=== PATIENT | female | born 1980 | race Caucasian/White ===

== ENCOUNTER 2020-06-20 13:13 | Emergency (ER) | payer MEDICAID ==
--- NOTE | 2020-06-20 13:28 | EDM.PDOC ---
ED HPI GENERAL MEDICAL PROBLEM - General Chief Complaint: Gastrointestinal Problem Stated Complaint: nausea/vomiting Time Seen by Provider: 06/20/20 13:25 Source of Information: Reports: Patient, Old Records ([facility] EMR. No paper hospital chart available.) History Limitations: Reports: No Limitations - History of Present Illness INITIAL COMMENTS - FREE TEXT/NARRATIVE: The patient was brought to the emergency room via private automobile by her for evaluation of sharp constant 5/10 right upper quadrant abdominal pain associated with 5 episodes of emesis and 2 loose stools with symptoms starting at about 2:30 AM this morning. She has also felt somewhat chilled, however not measured her temperature with no medications taken to this point secondary to recurrent emesis as above. No recent history of other abdominal pain, heartburn, hematemesis, melena, gross hematochezia, or any food intolerance, including fatty foods, etc.. She denies any gross hematuria, colic, or other UTI symptoms. The patient also denies any recent cough, wheezing, dyspnea, etc. with stable allergic rhinitis to this point. The patient denies any chest pain/pressure, heart flutter, orthostasis, orthopnea, diaphoresis, paresthesias, recent decreased exercise tolerance, or any other anginal-type symptoms, although she has felt somewhat dizzy secondary to the abo ve symptoms. The patient was evaluated by her regular provider, Hodan Simon PA-C, at [facility] in [place], yesterday and started on medications for bacterial vaginitis and exacerbation of her chronic vaginal moniliasis with the patient tolerating these medications in the past. She denies any recent exposure to infection or food poisoning. She was also started on an upper tapering regimen, Contrave yesterday by her regular provider. The patient did receive her J&J Covid immunization in May and also did receive an influenza booster this past season. Onset: Today, Gradual Onset Date: 06/20/20 Onset Time: 02:30 Duration: Constant, Getting Worse Location: Reports: Abdomen. Denies: Head, Chest, Back, Pelvis, Upper Extremity, Left, Upper Extremity, Right, Lower Extremity, Left, Lower Extremity, Right, Radiates to Quality: Reports: Same as Previous Episode, Sharp Severity: Moderate Improves with: Reports: None Worsens with: Reports: None Context: Reports: Other (As above). Denies: Sick Contact, Trauma Associated Symptoms: Reports: Fever/Chills, Nausea/Vomiting. 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) (None) Right Upper Abdomen Pain Score (Numeric/FACES): 5 - Related Data Allergies Allergy/AdvReac Type Severity Reaction Status Date / Time codeine Allergy Nausea Verified 06/20/20 13:45 Home Meds: Home Meds FLUoxetine HCl [Prozac] 40 mg PO DAILY 06/20/20 [History] Fluconazole [Diflucan] 100 mg PO [id number] 06/20/20 [History] Folic Acid 1 mg PO DAILY 06/20/20 [History] Methotrexate 6 tab PO WEEKLY 06/20/20 [History] Pregabalin [Lyrica] 200 mg PO BID 06/20/20 [History] metroNIDAZOLE [Metrogel-Vaginal] 1 applic VAG BEDTIME 06/20/20 [History] Past Medical History HEENT History: Reports: Allergic Rhinitis, Impaired Vision, Sinusitis, Other (See Below). Denies: Cataract, Glaucoma, Hard of Hearing, Macular Degeneration, Retinal Detachment Other HEENT History: Patient wears glasses. Dry eyes secondary to Sjogren's syndrome. Cardiovascular History: Reports: Arrhythmia, Other (See Below). Denies: Afib, Aneurysm, Blood Clots/VTE/DVT, CAD, Heart Failure, Heart Murmur, High Cholesterol, Hypertension, [place], PVD, Syncope Other Cardiovascular History: PACs, PVCs, and some arrhythmia usually during pregnancies, however also with caffeine, stimulant exposure. Respiratory History: Reports: Intubation, Previous. Denies: Asthma, Bronchitis, Recurrent, COPD, Intubation, Difficult, PE, Pneumonia, Recurrent, Pneumothorax, Pulmonary Fibrosis, Sleep Apnea, TB Gastrointestinal History: Reports: Cholelithiasis, Chronic Constipation, GERD. Denies: Bowel Obstruction, Celiac Disease, Chronic Diarrhea, Diverticulosis, Fatty Liver, Fecal Incontinence, Gastritis, GI Bleed, Hepatitis, Hiatal Hernia, Inflammatory Bowel Disease, Irritable Bowel Syndrome, Jaundice, Pancreatitis, PUD Genitourinary History: Reports: Hydronephrosis, Renal Calculus, UTI, Recurrent, Other (See Below). Denies: Acute Renal Failure, Chronic Renal Insuffiency, Retention, Urinary, STD, Urinary Incontinence Other Genitourinary History: Chronic recurrent vaginal moniliasis. Right-sided urolithiasis which did require procedures as below. 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 D enies: Dysfunctional Uterine Bleeding, Endometriosis, Fibroids LMP (Approximate): Other (See Below) Other WET COTTON FEEDER History: Vaginal stillborn at 28 weeks gestation with subsequent C- sections x2 secondary to small pelvis. No other complications during pregnancies or deliveries. LMP normal 1 week ago. Musculoskeletal History: Reports: Arthritis, Back Pain, Chronic, Fracture, Neck Pain, Chronic, Osteoarthritis, Other (See Below). Denies: Gout (No gallop no rheumatoid arthritis shoulder pain), RA, SLE Other Musculoskeletal History: Chronic left shoulder pain, etc. Sjogren's syndrome. Left clavicular fracture at age 2. Distal left tibial fracture not requiring any surgery at age 20. Neurological History: Denies: Cerebral Aneurysms, Concussion, CVA, Headaches, Chronic, Head Trauma, Migraines, Neuropathy, Peripheral, Parkinson's, Seizure, TIA, Vertigo Other Neuro History: Trigeminal neuralgia. Psychiatric History: Reports: Anxiety, Depression. Denies: Abuse, Victim of, ADD, ADHD, Psych Hospitalization(s), PTSD, Suicide Attempt, Suicidal Ideation Endocrine/Metabolic History: Reports: Multinodular Thyroid, Obesity/BMI 30+, Other (See Below). Denies: Diabetes, Gestational, Diabetes, Type I, Diabetes, Type II, Diabetes Mellitus, Type 3c, Hypothyroidism, IDDM Other Endocrine/Metabolic History: Benign thyroid nodules with negative biopsies as below in 2017. Hematologic History: Reports: Anemia. Denies: Blood Transfusion(s), Iron Deficiency Immunologic History: Reports: None. Denies: AIDS, HIV, SLE Oncologic (Cancer) History: Reports: None. Denies: Basal Cell Carcinoma, Cervix, Hodgkin's Lymphoma, Leukemia, Lymphoma, Malignant Melanoma, Non- Hodgkin's Lymphoma, Ovarian, Squamous Cell Carcinoma, Uterine Dermatologic History: Reports: Other (See Below). Denies: Eczema, Psoriasis Other Dermatologic History: Multiple benign nevi. - Infectious Disease History Infectious Disease History: Reports: Other (See Below). Denies: C-Difficile, Chicken Pox, Measles, Meningitis, Mononucleosis, MRSA, Mumps, Novel Coronavirus (J&J immunization in May 2020), Pertussis (Whooping Cough), Rheumatic Fever, Rubella, Scarlet Fever, Shingles, TB, VRE Other Infectious Disease History: Fifth's disease. - Past Surgical History Head Surgeries/Procedures: Reports: None HEENT Surgical History: Reports: Adenoidectomy, Oral Surgery, Tonsillectomy, Other (See Below) (No nose or sinus surgery laser treatments of your eye and). Denies: Cataract Surgery, Eye Surgery, Laser Surgery, LASIK, Myringotomy w Tube(s), Naso-Sinus Surgery Other HEENT Surgeries/Procedures: [place] teeth extraction x4 at about age 15 with additional teeth extractions. Tonsillectomy and adenoidectomy at age 15. Cardiovascular Surgical History: Reports: None. Denies: Varicose Respiratory Surgical History: Reports: None (Varicose veins or other). Denies: Thoracentesis GI Surgical History: Reports: Cholecystectomy, Other (See Below). Denies: Appendectomy, Colon, Colonoscopy, EGD, Hernia, Abdominal, Hernia, Inguinal, Hernia Repair/Other Other GI Surgeries/Procedures: Laparoscopic cholecystectomy in 2004. Female Surgical History: Reports: Section, Kidney stone extraction, Ureteral Stent, Other (See Below). Denies: D&C, Dilitation & Evacuation, Hysterectomy, Oophorectomy, Salpingo-Oophorectomy, Tubal Ligation Other Female Surgeries/Procedures: x2 as above. Patient denies previous lithotripsy with actual intrauteral urinary stone laser treatment with subsequent stent placement and extraction in June 2013. Endocrine Surgical History: Reports: Thyroid Biopsy, Other (See Below) Other Endocrine Surgeries/Procedures: Negative thyroid biopsies x2 in 2016. Neurological Surgical History: Reports: None. Denies: C-Spine, Discectomy, Laminectomy, Lumbar Spine, Sacral Spine, Spinal Fusion, Thoracic Spine, Vertebroplasty Musculoskeletal Surgical History: Reports: None. Denies: Amputation, Carpal Tunnel, Ganglion Cyst, Joint Replacement, Shoulder Surgery Oncologic Surgical History: Reports: None Dermatological Surgical History: Reports: Skin Biopsy, Other (See Below) Other Dermatological Surgeries/Procedures: Excision of multiple benign nevi. Drainage of left breast abscess in October 2018. - Past Imaging History Past Imaging History: Reports: CAT Scan (CT scan of the abdomen and pelvis using stone protocol on 06/10/2013.), Ultrasound (Soft tissue ultrasound of the neck region on 02/08/2019. Left breast ultrasound on 10/18/2018. Pelvic ultrasound 08/25/2018. OB ultrasounds.) Social & Family History - Family History HEENT: Reports: Macular Degeneration, Other (See Below). Denies: Glaucoma, Retinal Detachment Other HEENT Family History: Maternal grandmother with macular degeneration. Cardiac: Reports: High Cholesterol, Other (See Below). Denies: Afib, Aneurysm, Arrhythmia, Blood Clots/VTE/DVT, CAD, Heart Failure, Heart Murmur, Hypertension, [place], Syncope Other Cardiac Family History: Father with hyperlipidemia. Respiratory: Reports: None. Denies: Asthma, COPD, PE, Pneumothorax, Sleep Apnea GI: Reports: Cholelithiasis, Other (See Below). Denies: Celiac Disease, Colon Polyps, GERD, GI bleed, Inflammatory Bowel Disease, Irritable Bowel Syndrome, PUD Other GI Family History: Cholelithiasis and sisters x2. : Reports: None. Denies: Renal Calculus, Renal Disease/Insufficiency OBGYN: Reports: Endometriosis, Other (See Below). Denies: Dysfunctional uterine bleeding, Fibroids, Recurrent Spontaneous Other OBGYN Family History: Sister with endometriosis. Musculoskeletal: Denies: Gout, Osteoarthritis, RA, SLE Neurological: Reports: CVA, Dementia, MS, Other (See Below). Denies: Alzheimers Disease, Cerebral Aneurysms, Parkinson's, Seizure, TIA Other Neurological Family History: Maternal grandfather with fatal CVA in his early 70s. Mother with unknown type of recurrent headaches. Sister with MS. Paternal grandmother with organic brain syndrome. Psychiatric: Reports: None. Denies: Abuse, Victim of, ADD, ADHD, Anxiety, Depression, Psych Hospitalization(s), PTSD, Suicide Attempt Endocrine/Metabolic: Reports: None. Denies: Diabetes, Type I, Diabetes, type II, Diabetes Mellitus, Type 3c, Hypothyroidism, IDDM Hematologic: Reports: None. Denies: Anemia Immunologic: Reports: None. Denies: AIDS, HIV, SLE Dermatologic: Reports: Eczema, Other (See Below). Denies: Psoriasis Other Dermatologic Family History: Children x2 with eczema. Oncologic: Reports: Brain, Skin, Other (See Below). Denies: Breast, Cervix, Colon, Hodgkin's Lymphoma, Leukemia, Lung, Lymphoma, Non-Hodgkin's Lymphoma, Ovarian, Thyroid, Uterine Other Oncologic Family History: Paternal grandfather with fatal brain cancer in his mid 70s. Father with unknown type of skin cancer. - Tobacco Use Tobacco Use Status *Q: Never Tobacco User Tobacco Use Within Last Twelve Months: No Used Tobacco, but Quit: No Smoking Cessation Information Provided To Patient: No Second Hand Smoke Exposure: No Second Hand Smoke Education Provided: No - Caffeine Use Caffeine Use: Reports: Coffee (1-2 cups/day). Denies: Energy Drinks, Soda, Tea - Alcohol Use Alcohol Use History: Yes Days Per Week of Alcohol Use: 0 Number of Drinks Per Day: 2 Number of Drinks Per Day Comment: Usually wine about once per month. No previous DWIs, problems with alcohol abuse, etc.. Total Drinks Per Week: 0 - Recreational Drug Use Recreational Drug Use: No Drug Use in Last 12 Months: No Recreational Drug Type: Denies: Amphetamines (Speed), Cocaine, Heroin, LSD (Acid), Marijuana/Hashish, Methamphetamine, Morphine, Oxycodone - Living Situation & Occupation Living situation: Reports: (2011. 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 ED EXAM, GI/ABD - Physical Exam Exam: See Below Exam Limited By: No Limitations General Appearance: Alert, WD/WN, No Apparent Distress, Anxious (Mild) Eyes: Bilateral: Normal Appearance (Patient is wearing glasses. No vertigo or nystagmus), EOMI (PERRLA) Ears: Normal External Exam, Normal Canal, Hearing Grossly Normal, Normal TMs Nose: Normal Inspection, Normal Mucosa, No Blood Throat/Mouth: Normal Inspection, Normal Lips, Normal Teeth (Occasional missing teeth), Normal Gums, Normal Oropharynx, Normal Voice, No Airway Compromise. No: Dysphagia, Perioral Cyanosis Head: Atraumatic, Normocephalic. No: Facial Swelling, Facial Tenderness, Sinus Tenderness Neck: Normal Inspection, Supple, Non-Tender, Full Range of Motion. No: Carotid Bruit, Lymphadenopathy (L), Lymphadenopathy (R), Thyromegaly Respiratory/Chest: No Respiratory Distress, Lungs Clear, Normal Breath Sounds, No Accessory Muscle Use, Chest Non-Tender. No: Pleural Rub, Retractions Cardiovascular: Normal Peripheral Pulses, Regular Rate, Rhythm, No Edema, No Gallop, No JVD, No Murmur, No Rub. No: Gallop/S3, Gallop/S4, Friction Rub GI/Abdominal Exam: Normal Bowel Sounds, No Organomegaly, No Distention, No Abnormal Bruit, No Mass, Pelvis Stable, Tender (Mild right upper quadrant palpation pain). No: Guarding, Rigid, Rebound (Female) Exam: Deferred Rectal (Female) Exam: Deferred Back Exam: Normal Inspection, Full Range of Motion. No: CVA Tenderness (L), CVA Tenderness (R), Muscle Spasm Extremities: Normal Inspection, Normal Range of Motion, Non-Tender, No Pedal Edema, Normal Capillary Refill. No: Carri's Sign Neurological: Alert, Oriented, CN II-XII Intact, Normal Cognition, Normal Gait, Normal Reflexes (Negative Babinski's), No Motor/Sensory Deficits Psychiatric: Anxious (Mild), Depressed Mood (Borderline) Skin Exam: Warm, Dry, Intact, Normal Color, No Rash. No: Diaphoretic, Pallor, Wound/Incision Lymphatic: No Adenopathy Course - Vital Signs Last Recorded V/S: Last Vital Signs Temp 36.8 C 06/20/20 14:00 Pulse 78 06/20/20 14:00 Resp 16 06/20/20 14:00 BP 118/63 06/20/20 14:00 Pulse Ox 100 06/20/20 14:00 Vital Signs - 24 hr 06/20/20 06/20/20 06/20/20 13:15 13:43 14:00 Temperature [ 36.9 C 36.8 C Temporal] Pulse, 83 75 78 Peripheral [ Right Pulse Oximetry] Respiratory 18 18 16 Rate Blood Pressure 110/66 111/64 118/63 [Right Upper Arm] O2 Sat by Pulse 100 100 100 Oximetry - Orders/Labs/Meds Orders: Active Orders 24 hr Category Date Time Status Abdomen Series w Chest 1V [CR] Stat Exams 06/20/20 13:29 Taken CULTURE STREP A CONFIRMATION [RM] Stat Lab 06/20/20 13:37 Results CULTURE URINE [RM] Stat Lab 06/20/20 14:22 Ordered STREP SCRN A RAPID W CULT CONF [RM] Stat Lab 06/20/20 13:37 Results Isolation [COMM] Routine Oth 06/20/20 13:31 Active Obtain Past Medical Record [OM.PC] Urgent Oth 06/20/20 13:29 Active Peripheral IV Insertion Adult [OM.PC] Stat Oth 06/20/20 13:29 Ordered Resuscitation Status Stat Resus Stat 06/20/20 13:29 Ordered Labs: Laboratory Tests 06/20/20 06/20/20 06/20/20 Range/Units 13:37 13:45 13:45 WBC 8.8 (4.0-10.2) K/uL RBC 4.61 (3.77-5.09) M/uL Hgb 14.3 D (11.7-15.5) g/dL Hct 42.0 (34.0-46.0) % MCV 91.1 (84.0-98.0) fL MCH 31.0 (28.2-33.3) pg MCHC 34.0 (31.7-36.0) g/dL RDW 14.1 (11.2-14.1) % Plt Count 292 (150-350) K/uL Neut % (Auto) 86.4 H (45.0-80.0) % Lymph % (Auto) 8.7 L (10.0-50.0) % Custer % (Auto) 4.6 (2.0-14.0) % Eos % (Auto) 0.1 (0.0-5.0) % Baso % (Auto) 0.2 (0.0-2.0) % Neut # (Auto) 7.62 H (1.40-7.00) K/uL Lymph # (Auto) 0.77 (0.50-3.50) K/uL [place] # (Auto) 0.41 (0.00-1.00) K/uL Eos # (Auto) 0.01 (0.00-0.50) K/uL Baso # (Auto) 0.02 (0.00-0.20) K/uL PT (9.5-12.0) SEC INR APTT (24.5-32.8) SEC Sodium (136-145) mmol/L Potassium (3.5-5.1) mmol/L Chloride (98-107) mmol/L Carbon Dioxide (21.0-32.0) mmol/L BUN (7-18) mg/dL Creatinine (0.51-1.17) mg/dL Est Cr Clr Drug Dosing mL/min Estimated GFR (MDRD) mL/min Glucose (70-99) mg/dL Lactic Acid (0.4-2.0) mmol/L Uric Acid (2.6-7.2) mg/dL Calcium (8.5-10.1) mg/dL Magnesium (1.8-2.4) mg/dL Total Bilirubin (0.2-1.0) mg/dL AST (15-37) U/L ALT (12-78) U/L Alkaline Phosphatase (46-116) IU/L Total Protein (6.4-8.2) g/dL Albumin (3.4-5.0) g/dL Amylase 40 (25-115) U/L Lipase (73-393) U/L HCG, Qual (NEGATIVE) Specimen Type Urine Color Urine Appearance Urine pH (5.0-9.0) Ur Specific Dyer (1.005-1.030) Urine Protein (NEGATIVE) mg/dL Urine Glucose (UA) (NEGATIVE) mg/dL Urine Ketones (NEGATIVE) mg/dL Urine Occult Blood (NEGATIVE) Urine Nitrite (NEGATIVE) Urine Bilirubin (NEGATIVE) Urine Urobilinogen (0.2-1.0) E.U./dL Ur Leukocyte Esterase (NEGATIVE) Urine RBC /HPF Urine WBC /HPF Ur Epithelial Cells /LPF Urine Bacteria (NONE TO FEW) /HPF SARS-CoV-2 RNA (NNEKA) Negative (NEGATIVE) 06/20/20 06/20/20 06/20/20 Range/Units 13:45 13:45 13:45 WBC (4.0-10.2) K/uL RBC (3.77-5.09) M/uL Hgb (11.7-15.5) g/dL Hct (34.0-46.0) % MCV (84.0-98.0) fL MCH (28.2-33.3) pg MCHC (31.7-36.0) g/dL RDW (11.2-14.1) % Plt Count (150-350) K/uL Neut % (Auto) (45.0-80.0) % Lymph % (Auto) (10.0-50.0) % C[place] % (Auto) (2.0-14.0) % Eos % (Auto) (0.0-5.0) % Baso % (Auto) (0.0-2.0) % Neut # (Auto) (1.40-7.00) K/uL Lymph # (Auto) (0.50-3.50) K/uL C[place] # (Auto) (0.00-1.00) K/uL Eos # (Auto) (0.00-0.50) K/uL Baso # (Auto) (0.00-0.20) K/uL PT 9.9 (9.5-12.0) SEC INR 1.0 APTT 25.2 (24.5-32.8) SEC Sodium 137 (136-145) mmol/L Potassium 3.8 (3.5-5.1) mmol/L Chloride 101 (98-107) mmol/L Carbon Dioxide 25.7 (21.0-32.0) mmol/L BUN 18 (7-18) mg/dL Creatinine 0.56 (0.51-1.17) mg/dL Est Cr Clr Drug Dosing 150.75 mL/min Estimated GFR (MDRD) > 60 mL/min Glucose 117 H (70-99) mg/dL Lactic Acid 0.9 (0.4-2.0) mmol/L Uric Acid 3.0 (2.6-7.2) mg/dL Calcium 8.7 (8.5-10.1) mg/dL Magnesium 2.0 (1.8-2.4) mg/dL Total Bilirubin 0.4 (0.2-1.0) mg/dL AST 76 H (15-37) U/L ALT 108 H (12-78) U/L Alkaline Phosphatase 118 H (46-116) IU/L Total Protein 7.6 (6.4-8.2) g/dL Albumin 3.8 (3.4-5.0) g/dL Amylase (25-115) U/L Lipase 87 (73-393) U/L HCG, Qual (NEGATIVE) Specimen Type Urine Color Urine Appearance Urine pH (5.0-9.0) Ur Specific Dyer (1.005-1.030) Urine Protein (NEGATIVE) mg/dL Urine Glucose (UA) (NEGATIVE) mg/dL Urine Ketones (NEGATIVE) mg/dL Urine Occult Blood (NEGATIVE) Urine Nitrite (NEGATIVE) Urine Bilirubin (NEGATIVE) Urine Urobilinogen (0.2-1.0) E.U./dL Ur Leukocyte Esterase (NEGATIVE) Urine RBC /HPF Urine WBC /HPF Ur Epithelial Cells /LPF Urine Bacteria (NONE TO FEW) /HPF SARS-CoV-2 RNA (NNEKA) (NEGATIVE) 06/20/20 06/20/20 Range/Units 13:45 14:01 WBC (4.0-10.2) K/uL RBC (3.77-5.09) M/uL Hgb (11.7-15.5) g/dL Hct (34.0-46.0) % MCV (84.0-98.0) fL MCH (28.2-33.3) pg MCHC (31.7-36.0) g/dL RDW (11.2-14.1) % Plt Count (150-350) K/uL Neut % (Auto) (45.0-80.0) % Lymph % (Auto) (10.0-50.0) % [place] % (Auto) (2.0-14.0) % Eos % (Auto) (0.0-5.0) % Baso % (Auto) (0.0-2.0) % Neut # (Auto) (1.40-7.00) K/uL Lymph # (Auto) (0.50-3.50) K/uL [place] # (Auto) (0.00-1.00) K/uL Eos # (Auto) (0.00-0.50) K/uL Baso # (Auto) (0.00-0.20) K/uL PT (9.5-12.0) SEC INR APTT (24.5-32.8) SEC Sodium (136-145) mmol/L Potassium (3.5-5.1) mmol/L Chloride (98-107) mmol/L Carbon Dioxide (21.0-32.0) mmol/L BUN (7-18) mg/dL Creatinine (0.51-1.17) mg/dL Est Cr Clr Drug Dosing mL/min Estimated GFR (MDRD) mL/min Glucose (70-99) mg/dL Lactic Acid (0.4-2.0) mmol/L Uric Acid (2.6-7.2) mg/dL Calcium (8.5-10.1) mg/dL Magnesium (1.8-2.4) mg/dL Total Bilirubin (0.2-1.0) mg/dL AST (15-37) U/L ALT (12-78) U/L Alkaline Phosphatase (46-116) IU/L Total Protein (6.4-8.2) g/dL Albumin (3.4-5.0) g/dL Amylase (25-115) U/L Lipase (73-393) U/L HCG, Qual Negative (NEGATIVE) Specimen Type Urinvoid Urine Color Yellow Urine Appearance Clear Urine pH 7.0 (5.0-9.0) Ur Specific Dyer 1.015 (1.005-1.030) Urine Protein Negative (NEGATIVE) mg/dL Urine Glucose (UA) Negative (NEGATIVE) mg/dL Urine Ketones 15 H (NEGATIVE) mg/dL Urine Occult Blood Negative (NEGATIVE) Urine Nitrite Negative (NEGATIVE) Urine Bilirubin Negative (NEGATIVE) Urine Urobilinogen 0.2 (0.2-1.0) E.U./dL Ur Leukocyte Esterase Negative (NEGATIVE) Urine RBC Not seen /HPF Urine WBC 0-5 /HPF Ur Epithelial Cells Few /LPF Urine Bacteria Few (NONE TO FEW) /HPF SARS-CoV-2 RNA (NNEKA) (NEGATIVE) Urine specimen sent for culture and sensitivity Microbiology 06/20/20 13:37 Group A Streptococcus Rapid Screen - Final Throat NEGATIVE STREP A SCREEN REFERENCE RANGE: NEGATIVE 06/20/20 13:37 Influenza Type A Antigen Screen - Final Nasal, Unspecified NEGATIVE INFLUENZA A VIRUS AG REFERENCE RANGE: NEGATIVE Influenza Type B Antigen Screen - Final NEGATIVE INFLUENZA B VIRUS AG REFERENCE RANGE: NEGATIVE Meds: Medications Discontinued Medications Generic Name Dose Route Start Last Admin Trade Name Freq PRN Reason Stop Dose Admin Al Hydroxide/Mg Hydroxide 30 ml 06/20/20 14:48 06/20/20 14:53 Gi Cocktail Oral Solution 30 Ml PO 06/20/20 14:49 30 ml ONETIME ONE Administration Famotidine 40 mg 06/20/20 13:29 06/20/20 13:44 Famotidine 20 Mg/2 Ml Sdv IVPUSH 06/20/20 13:30 40 mg ONETIME ONE Administration Lactated Ringer's 1,000 mls @ 999 mls/hr 06/20/20 13:29 06/20/20 13:50 Ringers, Lactated IV 06/20/20 14:29 999 mls/hr .BOLUS ONE Administration Ondansetron HCl 4 mg 06/20/20 13:29 06/20/20 13:44 Ondansetron 4 Mg/2 Ml Sdv IVPUSH 06/20/20 13:30 4 mg ONETIME ONE Administration Pantoprazole Sodium 40 mg 06/20/20 13:29 06/20/20 13:44 Pantoprazole 40 Mg Vial IVPUSH 06/20/20 13:30 40 mg ONETIME ONE Administration Sodium Chloride 10 ml 06/20/20 13:29 Sodium Chloride 0.9% 10 Ml Syringe FLUSH ASDIRECTED PRN Keep Vein Open - Radiology Interpretation Free Text/Narrative:: Acute abdominal x-ray shows a mildly poor inspiratory film with no cardiomegaly, CHF, pulmonary infiltrates, pneumothorax, free air, ileus, obstruction, fluid levels, etc. Surgical clips noted in the right upper quadrant consistent with previous laparoscopic cholecystectomy with additional surgical clips noted in the right lower quadrant consistent with possible concomitant appendectomy? Departure - Departure Time of Disposition: 15:05 Disposition: Home, Self-Care 01 Condition: Good Clinical Impression: Peptic reflux disease, Mixed anxiety depressive disorder, Obesity (BMI 35.0- 39.9 without comorbidity), Vaginal moniliasis, Elevated LFTs Nausea and vomiting Qualifiers: Vomiting type: unspecified Vomiting Intractability: non-intractable Qualified Code(s): R11.2 - Nausea with vomiting, unspecified - Discharge Information *PRESCRIPTION DRUG MONITORING PROGRAM REVIEWED*: Not Applicable *COPY OF PRESCRIPTION DRUG MONITORING REPORT IN PATIENT REMA: Not Applicable Instructions: Heart-Healthy Eating Plan, [id number], Nausea and Vomiting, Adult, [id number] Referrals: Hodan Sorenson PA-C [Physician Breakfast Attendant] - Forms: ED Department Discharge, ED Return to Work/School Form Additional Instructions: 1. Followup with your regular provider in 7 days as directed with recommended repeat CBC, comprehensive metabolic panel, and additional glycosylated hemoglobin and/or 12-hour fasting lipid panel, if your diabetes and/your cholesterol profile has not been recently conducted within the last 3 months. Bring these discharge instructions with you to that visit 2. Consider abdominal ultrasound depending on your symptoms at follow-up secondary to your mild liver function test elevations today. 3. [place] diet including encouragement of oral fluids such as sports drinks, etc. for 24-48 hours as directed. Advance to heart healthy diet as tolerated thereafter. 4. You may use [id number] antacids, Pepcid, and/or Prilosec as needed per label instructions depending on your symptoms with this to be discussed with your regular provider at the above follow-up visit 5. Work excuse- See Form 6. Immediately after this visit verify that your cellular telephone's voicemail has been activated and is empty. Also verify that your home telephone's answering machine is operating properly and has space to receive messages. Note that it is sometimes necessary for us to be able to contact you at a later date to discuss your medical care. 7. Please remember that we are ALWAYS here for you and want to answer any questions you may have. Feel free to call the hospital any time and we call you back MARY. 8. You have been declared intolerant to Contrave and should discontinue this medication at this time. Discuss this with your regular provider at the above follow-up visit. 9. Have your regular provider review the paper hospital chart at [facility] to determine whether a concomitant incidental appendectomy was actually performed at time of your laparoscopic cholecystectomy. Sepsis Event Note (ED) - Focused Exam Vital Signs: Vital Signs Temp Pulse Resp BP Pulse Ox 06/20/20 14:00 36.8 C 78 16 118/63 100 06/20/20 13:43 75 18 111/64 100 06/20/20 13:15 36.9 C 83 18 110/66 100 - Problem List & Annotations (1) Nausea and vomiting SNOMED Code(s): 21241463 Code(s): R11.2 - NAUSEA WITH VOMITING, UNSPECIFIED Status: Acute Pr iority: High Onset Date: 06/20/20 Annotation/Comment:: Likely secondary to her Contrave, which the patient started yesterday as above with 1 dose to this point. She will be declared intolerant to this medication and will discuss this further with her regular provider. Symptoms resolved at time of discharge with bland diet initially. Work excuse was provided. Qualifiers: Vomiting type: unspecified Vomiting Intractability: non-intractable Qualified Code(s): R11.2 - Nausea with vomiting, unspecified (2) Peptic reflux disease SNOMED Code(s): 736267258 Code(s): K21.9 - GASTRO-ESOPHAGEAL REFLUX DISEASE WITHOUT ESOPHAGITIS Status: Chronic Priority: Medium Annotation/Comment:: No previous medical therapy. Overall good results with high-dose IV Pepcid and IV Protonix in the emergency room. 1 L of lactated Ringer's was also given in the emergency room. [place] diet for now with subsequent as needed medications as per discharge instructions. (3) Elevated LFTs SNOMED Code(s): 419233481 Code(s): R79.89 - OTHER SPECIFIED ABNORMAL FINDINGS OF BLOOD CHEMISTRY Status: Acute Priority: High Onset Date: 06/20/20 Annotation/Comment:: Possibly secondary to fatty liver. Observe closely by her regular provider with consideration of lipid panel, abdominal ultrasound, etc. depending on her clinical course as per discharge instructions. Note status post laparoscopic cholecystectomy with patient denying concomitant appendectomy. She will discuss this further with her regular provider at follow-up. Note that this procedure was performed at [facility] with [facility] chart to be reviewed by her regular provider. (4) Mixed anxiety depressive disorder SNOMED Code(s): 235097383 Code(s): F41.8 - OTHER SPECIFIED ANXIETY DISORDERS Status: Chronic Priority: Medium Annotation/Comment:: Moderate control based on today's exam. Continue to observe closely by her regular provider. (5) Obesity (BMI 35.0-39.9 without comorbidity) SNOMED Code(s): 511829424, 620081124 Code(s): E66.9 - OBESITY, UNSPECIFIED Status: Chronic Priority: Medium Annotation/Comment:: Dietary information provided. Continue close follow-up by regular provider. (6) Vaginal moniliasis SNOMED Code(s): 69299613 Code(s): B37.3 - CANDIDIASIS OF VULVA AND VAGINA Status: Acute Priority: Medium Onset Date: ~06/19/20 Annotation/Comment:: Chronic problem with repeat medical therapy started yesterday. - Problem List Review Problem List Initiated/Reviewed/Updated: Yes - My Orders Last 24 Hours: My Active Orders 06/20/20 13:29 Abdomen Series w Chest 1V [CR] Stat Obtain Past Medical Record [OM.PC] Urgent Peripheral IV Insertion Adult [OM.PC] Stat Resuscitation Status Stat 06/20/20 13:31 Isolation [COMM] Routine 06/20/20 13:37 CULTURE STREP A CONFIRMATION [RM] Stat STREP SCRN A RAPID W CULT CONF [RM] Stat 06/20/20 14:22 CULTURE URINE [RM] Stat - Assessment/Plan Last 24 Hours: My Active Orders 06/20/20 13:29 Abdomen Series w Chest 1V [CR] Stat Obtain Past Medical Record [OM.PC] Urgent Peripheral IV Insertion Adult [OM.PC] Stat Resuscitation Status Stat 06/20/20 13:31 Isolation [COMM] Routine 06/20/20 13:37 CULTURE STREP A CONFIRMATION [RM] Stat STREP SCRN A RAPID W CULT CONF [RM] Stat 06/20/20 14:22 CULTURE URINE [RM] Stat Assessment:: As above Plan: As above. Extensive precautions were given to the patient, who is in agreement with the treatment plan. See Patient Instructions for further treatment and plan.
[2020-06-20] MEDS ORDERED: Ondansetron 4 MG/2 ML SDV IVPUSH ONE (13:29)
[2020-06-20] MEDS ORDERED: Sodium Chloride 0.9% 10 ML Syringe FLUSH PRN (13:29)
[2020-06-20] MEDS ORDERED: Pantoprazole 40 MG Vial IVPUSH ONE (13:29)
[2020-06-20] MEDS ORDERED: Lactated Ringers 1,000 ML IV ONE (13:29)
[2020-06-20] MEDS ORDERED: Famotidine 20 MG/2 ML SDV IVPUSH ONE (13:29)
[2020-06-20 14:08] LABS: PTT,PARTIAL THROMBOPLSTIN TIME 25.2 SEC (24.5-32.8)
[2020-06-20 14:10] LABS: CHLORIDE,CL 101 mmol/L (98-107); SODIUM,NA 137 mmol/L (136-145)
[2020-06-20 14:37] VITALS: BP 118/63; PULSE 78
[2020-06-20] MEDS ORDERED: GI Cocktail Oral Solution 30 ML PO ONE (14:48)
== END 2020-06-20 15:05 | disposition home or self-care (01) ==
LOC: LL.ED 13:13
DX: K27.9 Peptic ulcer, site unspecified, unspecified as acute or chronic, without hemorrhage or perforation (principal); F32.9 Major depressive disorder, single episode, unspecified; E66.9 Obesity, unspecified; B37.3 Candidiasis of vulva and vagina; R79.89 Other specified abnormal findings of blood chemistry; Z68.35 Body mass index [BMI] 35.0-35.9, adult; Z88.5 Allergy status to narcotic agent; Z20.822 Contact with and (suspected) exposure to COVID-19
CPT/HCPCS: 36415; 74022; 80053; 81001; 82150; 83605; 83690; 83735; 84550; 84703; 85025; 85610; 85730; 87081; 87086; 87430; 87804; 96374; 96375; 99284; 99284-25; A9270-GY; C9113; J2405; J3490; J7120; U0002

== ENCOUNTER 2021-03-07 12:13 | Emergency (ER) | payer OTHER, MEDICAID ==
[2021-03-07] MEDS: Ondansetron 4 MG/2 ML SDV IVPUSH ONE (13:35)
[2021-03-07] MEDS: Morphine 4 MG/ML Syringe IVPUSH ONE (13:35)
[2021-03-07] MEDS: Lactated Ringers 1,000 ML IV SCH (13:35)
[2021-03-07 14:15] LABS: ANION GAP 10.2 meq/L (7-15); CHLORIDE,CL 104 mmol/L (98-107); SODIUM,NA 138 mmol/L (136-145)
[2021-03-07 14:44] VITALS: BP 123/78; PULSE 88
[2021-03-07] MEDS: Morphine 4 MG/ML Syringe IM ONE (15:15)
[2021-03-07 15:22] LABS: CORONAVIRUS COVID-19 NAA NEGATIVE (NEGATIVE); RESPIRATORY SYNCYTIAL VIR NAA NEGATIVE (NEGATIVE)
[2021-03-07] MEDS: Iopamidol 612 MG/ML 100 ML Bottle ONE (15:30)
[2021-03-07] MEDS: Ketorolac 30 MG/ML SDV IVPUSH ONE (16:08)
[2021-03-07] MEDS: Sodium Chloride 0.9% 10 ML Syringe FLUSH PRN (16:08)
[2021-03-07] MEDS: HYDROmorphone 1 MG/ML Syringe IVPUSH ONE (16:08)
[2021-03-07] MEDS: Acetaminophen/HYDROcodone 325-10 MG Tab PO ONE ×2 (18:26→18:27)
== END 2021-03-07 18:20 | disposition home or self-care (01) ==
LOC: LL.ED 12:13
DX: K52.9 Noninfective gastroenteritis and colitis, unspecified (principal); Z88.5 Allergy status to narcotic agent; Z20.822 Contact with and (suspected) exposure to COVID-19
CPT/HCPCS: 0241U; 36415; 74177; 80053; 81001; 82150; 83690; 83735; 84100; 85025; 86140; 96372; 96374; 96375; 99284; 99284-25; A9270-GY; J1170; J1885; J2270; J2405; J7120; Q9967

== ENCOUNTER 2023-02-14 15:37 | Emergency (ER) | payer OTHER ==
[2023-02-14] MEDS ORDERED: Ondansetron 4 MG/2 ML SDV IVPUSH ONE (15:43)
[2023-02-14 16:03] LABS: BASOPHILS ABSOLUTE AUTO 0.02 K/uL (0.00-0.20); BASOPHILS PERCENT AUTO 0.1 % (0.0-2.0); EOSINOPHILS ABSOLUTE AUTO 0.07 K/uL (0.00-0.50); EOSINOPHILS PERCENT AUTO 0.4 % (0.0-5.0); HEMATOCRIT 44.1 % (34.0-46.0); HEMOGLOBIN 14.8 g/dL (11.7-15.5); LYMPHOCYTES ABSOLUTE AUTO 1.14 K/uL (0.50-3.50); LYMPHOCYTES PERCENT AUTO 6.4 % (10.0-50.0); MEAN CORPUSCULAR HGB CONC 33.6 g/dL (31.7-36.0); MEAN CORPUSCULAR VOLUME 89.3 fL (84.0-98.0); MONOCYTES ABSOLUTE AUTO 0.97 K/uL (0.00-1.00); MONOCYTES PERCENT AUTO 5.5 % (2.0-14.0); NEUTROPHILS ABSOLUTE AUTO 15.52 K/uL (1.40-7.00); NEUTROPHILS PERCENT AUTO 87.6 % (45.0-80.0); PLATELET COUNT,PLT 326 K/uL (150-350); RED BLOOD CELL COUNT 4.94 M/uL (3.77-5.09); RED CELL DISTRIBUTION WIDTH 14.3 % (11.2-14.1); WHITE BLOOD CELL COUNT,WBC 17.7 K/uL (4.0-10.2)
[2023-02-14] MEDS: Sodium Chloride 0.9% 10 ML Syringe FLUSH PRN ×2 (16:03→18:53)
[2023-02-14 16:17] LABS: PROTHROMBIN TIME 10.3 SEC (9.0-11.1)
[2023-02-14 16:21] LABS: ALANINE AMINOTRANSFERASE,ALT 51 U/L (12-78); ALBUMIN 3.7 g/dL (3.4-5.0); ALKALINE PHOSPHATASE 99 IU/L (46-116); ANION GAP 11.5 meq/L (7-15); ASPARTATE AMNIOTRANSFERASE,AST 37 U/L (15-37); BILIRUBIN TOTAL 0.4 mg/dL (0.2-1.0); BLOOD UREA NITROGEN,BUN 23 mg/dL (7-18); CALCIUM 8.9 mg/dL (8.5-10.1); CARBON DIOXIDE,CO2 23.5 mmol/L (21.0-32.0); CHLORIDE,CL 103 mmol/L (98-107); GLUCOSE RANDOM 111 mg/dL (70-99); POTASSIUM,K 3.9 mmol/L (3.5-5.1); PROTEIN TOTAL,TP 7.9 g/dL (6.4-8.2); SODIUM,NA 138 mmol/L (136-145)
[2023-02-14 16:25] LABS: ESTIMATED GFR 111 mL/min (>=60)
[2023-02-14] MEDS ORDERED: Naloxone 0.4 MG/ML SDV IVPUSH PRN (16:25)
[2023-02-14] MEDS ORDERED: fentaNYL 50 MCG/ML SDV IVPUSH ONE ×3 (16:25→18:49)
[2023-02-14] MEDS ORDERED: Lactated Ringers 1,000 ML IV ONE (16:26)
[2023-02-14 16:40] LABS: CORONAVIRUS COVID-19 NAA NEGATIVE (NEGATIVE); INFLUENZA A NAA NEGATIVE (NEGATIVE); INFLUENZA B NAA NEGATIVE (NEGATIVE); RESPIRATORY SYNCYTIAL VIR NAA NEGATIVE (NEGATIVE)
[2023-02-14] MEDS ORDERED: Take Home: Ondansetron 4 MG Tab.DIS, 5 Tab Pack PO ONE (16:41)
[2023-02-14] MEDS ORDERED: Prochlorperazine 10 MG in Sodium Chloride 0.9% 100 ML IV ONE (18:12)
[2023-02-14] MEDS ORDERED: Prochlorperazine 10 MG/2 ML SDV ONE (18:14)
[2023-02-14] MEDS ORDERED: Prochlorperazine 10 MG/2 ML SDV IVPUSH ONE (18:15)
== END 2023-02-14 19:15 | disposition home or self-care (01) ==
LOC: LL.ED 15:37
DX: R10.9 Unspecified abdominal pain (principal); E66.9 Obesity, unspecified; Z79.899 Other long term (current) drug therapy; Z88.8 Allergy status to other drugs, medicaments and biological substances; Z90.49 Acquired absence of other specified parts of digestive tract; Z20.822 Contact with and (suspected) exposure to COVID-19
CPT/HCPCS: 0241U; 36415; 80053; 85025; 85610; 96361; 96374; 96375; 96376; 99284; J0780; J2405; J3010; J7120; Q0162; J3490